=== PATIENT | female | born 1955 | race African-American/Black ===

== ENCOUNTER 2021-05-17 11:40 | Emergency (ER) | payer SELFPAY | END 2021-05-17 13:35 | disposition home or self-care (01) | LOC: ERS 11:40 | DX: S93.601A Unspecified sprain of right foot, initial encounter (principal); F17.210 Nicotine dependence, cigarettes, uncomplicated; I10 Essential (primary) hypertension; Z79.899 Other long term (current) drug therapy; X58.XXXA Exposure to other specified factors, initial encounter ==